=== PATIENT | female | born 1985 | race Caucasian/White ===

== ENCOUNTER 2016-06-17 10:35 | Outpatient (CLI) | payer BC ==
[~2016-06-17] VITALS: Ht 167.6 cm; Wt 78.3 kg
[~2016-06-17 10:35] MED LIST: PREN-29 PO
[2016-06-17 10:40] VITALS: Ht 167.6 cm; Wt 78.3 kg
[2016-06-17 10:43] VITALS: RESP 16
[2016-06-17 12:07] LABS: ALBUMIN 3.6 g/dl (3.3-4.9)
[2016-06-17 12:08] LABS: POTASSIUM 3.3 mmol/L (3.5-5.1)
[2016-06-17 12:10] LABS: BILIRUBIN,INDIRECT 0.6 mg/dl (0-1.1); BILIRUBIN,TOTAL 0.6 mg/dl (0.2-1.3); CREATININE 0.49 mg/dl (0.44-1.00)
[2016-06-17 12:11] LABS: ALBUMIN/GLOBULIN RATIO 1.16; CALCIUM 8.5 mg/dl (8.4-10.2); TOTAL PROTEIN 6.7 g/dl (6.1-8.1)
--- NOTE | 2016-06-17 13:28 | RADRPT ---
PROCEDURE: Limited obstetric ultrasound CLINICAL INDICATION: Nausea, vomiting, labor TECHNIQUE: Multiple transverse and longitudinal grayscale images of the pelvis were obtained bray sabdominally and endovaginally.. COMPARISON: same day FINDINGS: There is a single live intrauterine gestation in a vertex position with a heart rate of 157 bp m. The placenta is right lateral in location. There is no evidence of placental abruption or placen ta previa. The cervix is closed and measures 5.1 cm in length. RPTAT: AA IMPRESSION: The cervix is closed and measures 5.1 cm in length. Physician Kristin Date Time Electronically viewed and signed by Raulito Ghotra Physician on 06/17/2016 13:28 RA/
--- NOTE | 2016-06-17 14:20 | TRIAGE ---
OB Triage Datetime Report Generated by CPN: 06/17/2016 14:20 Datetime: 06/17/2016 14:16 Comments: patient off monitor- order recieved from Dr. Keturah to D/C home Datetime: 06/17/2016 12:18 Stage of : OB Triage Labor Evaluation Frequency: 0 Monitor Mode: External Resting Tone Crest: Relaxed Heart Rate FHR Baseline Rate: 160 Variability: Moderate 6-25 bpm Accelerations: 15X15 Decelerations: None Category: Category I Pain Presence: None/Denies Pain Type: N/A Datetime: 06/17/2016 11:55 Labor Evaluation Frequency: 0 Monitor Mode: External Pattern: Normal: <= 5 Contractions in 10 Minutes Heart Rate FHR Baseline Rate: 155 Monitor Mode: External US Variability: Moderate 6-25 bpm Accelerations: 15X15 Decelerations: None Category: Category I Pain Presence: None/Denies Pain Type: N/A Datetime: 06/17/2016 10:48 Time of Arrival: 06/17/2016 10:33 EGA: 33.2 Arrived By: Ambulatory Arrived From: Home Chief Complaint: stomach flu- nausea vomitting Movement: Present Contractions: Denies/Absent Rupture of Membranes: Denies Vaginal Bleeding: None Vaginal Discharge: Denies Recent Sexual Intercouse: Denies Abdominal Trauma: Not Applicable Patient Complaints: Nausea; Vomiting Additional Patient Complaints: 4 times diarrhea - last time 0900- vomitted 0900 Time Provider Notified: 06/17/2016 10:57 Provider Notified: Dr. Ventura Initial Plan: EFMx@ Datetime: 06/17/2016 10:46 Stage of : OB Triage Assessment Type: Triage Maternal Assessment Level of Consciousness: Fully Conscious DTR's/Clonus: DTRs 2+; No Clonus Headache: Denies Blurred Vision: No Respiratory Effort: Unlabored; Regular Rhythm; Equal Expansion Breath Sounds, Left: Clear and Equal Breath Sounds, Right: Clear and Equal Nausea/Vomiting: Hx of Nausea/Vomiting RUQ Epigastric Pain: Denies Lower Extremities Edema: None Degree: None Upper Extremities Edema: None Degree: None Facial Edema: None Temperature Route: Oral Fall Risk Assessment History of Falling: (0) No Secondary Diagnosis: (0) No Ambulatory Aid: (0) Bedrest/Nurse Assist IV Therapy: (0) No Gait: (0) Normal/Bedrest/Immobile Mental Status: (0) Oriented to Own Ability Fall Score: 0 Fall Risk Score Definition: No Risk: No action required Monitor Mode: External Heart Rate FHR Baseline Rate: 165 Monitor Mode: External US Variability: Moderate 6-25 bpm Accelerations: 15X15 Decelerations: None Category: Category I Pain Assessment Pain Scale: 0 Pain Presence: None/Denies Pain Type: N/A
--- NOTE | 2016-06-17 14:46 | PN ---
Date/Time of Note Date/Time of Note DATE: 06/17/16 TIME: 14:34 OB Subjective Subjective Subjective 31 Y.O EDC 08/03/16 AT 33W2D AT TRIAGE WITH C/O NAUSEA AND VOMITING X4 AND DIARRHEA NO C/O UTERINE CONTRACTION ABLE TO TOLERATE WATER ORALLY LAST DIARRHEA WAS THIS AM 900 OB Objective Objective Objective VSS AFEBRILE HR 114 ELECTROLYTES OK EXCEPT K 3.4 EFM NO U.C STRIP REACTIVE OB Assessment/Plan Other Assessment: IUP 33W2D LVIRAL GASTROENTERITIS Other plan: D/S HOME WITH ROUTINE LABOR INSTRUCTIONS ADVISE TO STAY ON CLEAR LIQUID DIET F/U AT HER OB FOR CARE KYREE CURIEL MD Jun 17, 2016 14:45
== END 2016-06-17 14:31 | disposition home or self-care (01) ==
LOC: OBT 10:35 → L-D 10:36 → OBT 14:31
PROVIDERS: ATTEND Obstetrics & Gynecology
DX: O99.613 Diseases of the digestive system complicating pregnancy, third trimester (principal); A08.4 Viral intestinal infection, unspecified; O60.03 Preterm labor without delivery, third trimester; Z3A.33 33 weeks gestation of pregnancy
CPT/HCPCS: 76817; 80053; G0463

== ENCOUNTER 2016-08-03 12:47 | Inpatient (IN) | payer BC ==
[~2016-08-03] VITALS: Ht 167.6 cm; Wt 82.0 kg
[2016-08-09 13:24] VITALS: Ht 167.6 cm; Wt 82.0 kg
[2016-08-09] MEDS ORDERED: LACTATED RINGER'S 1,000 ML IV SCH (13:33)
[2016-08-09] MEDS ORDERED: MISOPROSTOL 200 MCG TAB PR PRN (14:00)
[2016-08-09] MEDS ORDERED: OXYTOCIN 30 UNITS/LR 500 ML IV PRN (14:00)
[2016-08-09] MEDS ORDERED: BUTORPHANOL 2 MG INJ IV PRN (14:00)
[2016-08-09] MEDS ORDERED: LIDOCAINE 1% (MPF) 30 ML INJ INJ PRN (14:00)
[2016-08-09] MEDS ORDERED: OXYTOCIN 30 UNITS/LR 500 ML IV SCH ×3 (14:00)
[2016-08-09] MEDS ORDERED: METHYLERGONOVINE 0.2 MG INJ IM PRN (14:00)
[2016-08-09] MEDS ORDERED: CARBOPROST 250 MCG INJ IM PRN (14:00)
[2016-08-09 14:33] LABS: ADD SCAN DIFF NO
[2016-08-09 14:36] LABS: BASOPHILS % 0.4 % (0.0-2.0); EOSINOPHILS # 0.1 10^3/ul (0.0-0.5); EOSINOPHILS % 0.9 % (0.0-7.0); HEMATOCRIT 36.1 % (37.0-47.0); HEMOGLOBIN 12.2 g/dl (12.0-16.0); LYMPHOCYTES # 2.5 10^3/ul (0.8-2.9); LYMPHOCYTES % 24.5 % (15.0-51.0); MEAN CORPUSCULAR HEMOGLOBIN 32.2 pg (29.0-33.0); MEAN CORPUSCULAR HGB CONC 33.8 g/dl (32.0-37.0); MEAN CORPUSCULAR VOLUME 95.3 fl (82.0-101.0); MEAN PLATELET VOLUME 9.9 fl (7.4-10.4); MONOCYTE # 0.7 10^3/ul (0.3-0.9); MONOCYTES % 6.8 % (0.0-11.0); NEUTROPHIL # 6.8 10^3/ul (1.6-7.5); NEUTROPHILS % 65.9 % (39.0-77.0); PLATELET COUNT 250 10^3/UL (140-415); RED BLOOD COUNT 3.79 10^6/ul (4.20-5.40); RED CELL DISTRIBUTION WIDTH 12.7 % (11.5-14.5); WHITE BLOOD COUNT 10.3 10^3/ul (4.8-10.8)
[2016-08-09 14:46] LABS: INR 0.96; PARTIAL THROMBOPLASTIN TIME 32.3 Sec (25.0-35.0); PROTIME 12.8 Sec (12.2-14.2)
[2016-08-09] MEDS: DEXTROSE 5%-LR 1,000 ML IV SCH (17:30)
[2016-08-09] MEDS: LACTATED RINGER'S 1,000 ML IV PRN ×2 (19:06→22:44)
[2016-08-09] MEDS ORDERED: FENTAnyl 2MCG/ML-ROPIV 0.2% 100 ML ONE (19:37)
[2016-08-09] MEDS ORDERED: NALOXONE (0.4 MG/ML) INJ IV PRN (20:30)
[2016-08-09] MEDS ORDERED: FENTAnyl 2MCG/ML-ROPIV 0.2% 100 ML BAG EPI SCH (20:30)
[2016-08-10] MEDS: DEXTROSE 5%-LR 1,000 ML IV SCH (01:30)
[2016-08-10] MEDS: LACTATED RINGER'S 1,000 ML IV* SCH ×3 (01:46→17:46)
[2016-08-10] MEDS ORDERED: OXYTOCIN 30 UNITS/LR 500 ML IV SCH (01:46)
--- NOTE | 2016-08-10 01:53 | LDN ---
Date/Time of Note Date/Time of Note DATE: 08/10/16 TIME: 01:50 Delivery Summary of a viable baby girl weighing 3535 grams or 7#13oz, 20' long, and with Apgars of 8/8/9. Placenta Delivered: Spontaneously Meconium: Thick Perineum intact?: No Perineal laceration: 1 Perineal laceration repair: First degree perineal laceration repaired with 2-0 chromic. Anesthesia type: Epidural Estimated blood loss: 250 Sponge & Needle done & correct: Yes All needle counts correct: Yes Any foreign bodies felt in the: No (vagina) Problems: Delivery Information Sex Sex: female Apgars 1 Minute: 8 5 Minute: 8 10 Minute: 9 Suctioning Nose & mouth suctioned at [place]: Yes Delee suction performed: Yes Umbilical Cord Umbilical cord with: 3 Vessels Cord presentations: no nuchal cord Cord Blood was obtained: Yes Mother & Baby Disposition Disposition Mom & Baby to Maternity; Good: Yes Baby to NICU: No DON PRESSLEY MD Aug 10, 2016 01:53
[2016-08-10] MEDS ORDERED: OXYTOCIN 30 UNITS/LR 500 ML IV PRN (02:00)
[2016-08-10] MEDS ORDERED: CARBOPROST 250 MCG INJ IM PRN (02:00)
[2016-08-10] MEDS ORDERED: OXYCODONE/ASPIRIN (4.88/325) TAB PO PRN (02:00)
[2016-08-10] MEDS ORDERED: METHYLERGONOVINE 0.2 MG INJ IM PRN (02:00)
[2016-08-10] MEDS ORDERED: LANOLIN 7 GM TUBE TOP PRN (02:00)
[2016-08-10] MEDS ORDERED: MISOPROSTOL 200 MCG TAB PR PRN (02:00)
--- NOTE | 2016-08-10 02:00 | HP ---
Date/Time of Note Date/Time of Note DATE: 08/10/16 TIME: 01:54 OB - History Hx of Present Free Text/Dictation 31 y.o. with an IUP at 41 weeks sent from the office on 08/09 as the TOI was 1.8cm in this postdates . Chief Complaint: Postdates, oligohydramnios. Last Menstrual Period: October 28, 2015 Estimated Due Date: Aug 03, 2016 : 2 Para: 1 Spontaneous : 0 Therapeutic : 0 Care: Good Care Ultrasounds: Normal mid trimester US Obstetrical Complications: None Medical Complications: None Past Family/Social History * Past Medical, Surgical, Family and Obstetric Histories reviewed from chart. Blood Type: O+ Rubella: immune RPR/VDRL: Negative GBS Status: Negative HBsAG: Negative OB Admission Exam Vital Signs Vital Signs Bp 134/80. T= 98.0 Physical Exam HEENT: WNL Heart: Rhythm Normal Lungs: Clear Abdomen: WNL Extremities: Normal Reflexes: Normal Cervical Dilatation: 1cm Effacement: 25% Station: -3 Membranes: Intact Amniotic Fluid: Thick Meconium Heart Rate: 150's Accelerations: Accelerations Present Decelerations: No Decelerations Contractions on Admission: < 5 Minutes Apart Last 72 hours Lab Results CBC & BMP 08/09/16 14:25 OB Assessment/Plan Reason for admission: induction of labor Other Assessment: Postdates, oligohydramnios. Plan: Induction Induction Method: per Pitocin Protocol DON PRESSLEY MD Aug 10, 2016 02:00
[2016-08-10 03:35] VITALS: BP 136/85; RESP 18
[2016-08-10 04:00] VITALS: BP 127/72; RESP 18
[2016-08-10] MEDS ORDERED: WITCH HAZEL/GLYCERIN PAD PR PRN (04:00)
[2016-08-10] MEDS ORDERED: DIBUCAINE 1% 30 GM OINT PR PRN (04:00)
[2016-08-10] MEDS ORDERED: BENZOCAINE 20% 56 ML SPRAY TOP PRN (04:00)
[2016-08-10] MEDS: IBUPROFEN 600 MG TAB PO SCH ×4 (05:15→23:54)
[2016-08-10 08:11] VITALS: BP 125/84; PULSE 81; RESP 18
[2016-08-10 16:55] VITALS: BP 137/84; PULSE 83; RESP 18
[2016-08-10 19:30] VITALS: BP 133/75; PULSE 75; RESP 20
[2016-08-11] MEDS: LACTATED RINGER'S 1,000 ML IV* SCH (01:46)
[2016-08-11 05:30] VITALS: BP 110/75; PULSE 72; RESP 20
[2016-08-11] MEDS: IBUPROFEN 600 MG TAB PO SCH ×3 (05:37→17:39)
[2016-08-11 07:55] LABS: ADD SCAN DIFF NO
[2016-08-11 07:58] LABS: BASOPHIL # 0.1 10^3/ul (0.0-0.1); BASOPHILS % 0.6 % (0.0-2.0); EOSINOPHILS # 0.2 10^3/ul (0.0-0.5); EOSINOPHILS % 1.4 % (0.0-7.0); HEMATOCRIT 35.9 % (37.0-47.0); HEMOGLOBIN 11.8 g/dl (12.0-16.0); LYMPHOCYTES # 3.1 10^3/ul (0.8-2.9); MEAN CORPUSCULAR HGB CONC 32.9 g/dl (32.0-37.0); MEAN CORPUSCULAR VOLUME 97.3 fl (82.0-101.0); MEAN PLATELET VOLUME 9.8 fl (7.4-10.4); MONOCYTE # 0.9 10^3/ul (0.3-0.9); MONOCYTES % 7.9 % (0.0-11.0); NEUTROPHILS % 61.4 % (39.0-77.0); PLATELET COUNT 270 10^3/UL (140-415); RED BLOOD COUNT 3.69 10^6/ul (4.20-5.40); RED CELL DISTRIBUTION WIDTH 12.8 % (11.5-14.5); WHITE BLOOD COUNT 11.4 10^3/ul (4.8-10.8)
[2016-08-11 08:10] VITALS: BP 138/81; PULSE 79; RESP 18
[2016-08-11 17:25] VITALS: BP 122/70; PULSE 75; RESP 18
[2016-08-11 20:00] VITALS: BP 129/61; PULSE 78; RESP 20
--- NOTE | 2016-08-11 21:06 | PD.PPDC ---
DINING ROOM ATTENDANT [place] Discharge Instruction Condition Patient Condition: Good Diet Diet: Resume Regular Diet Activity/Restrictions Activity: Normal Activity May Shower Restrictions: No Sexual Activity Nothing in the Vagina No [place] No Tampons, douche Follow-up Follow-up with Physician: 6, Week/Weeks Return to clinic for PET ADOPTION COUNSELOR Instructions: Fever greater than 101 Chills Worsening abdominal pain Excessive Vaginal Bleeding OB Instructions: Breast Tenderness Depression DON PRESSLEY MD Aug 11, 2016 21:06
--- NOTE | 2016-08-11 21:09 | DS ---
Date/Time of Note Date/Time of Note DATE: 08/11/16 TIME: 21:07 Obstetrical Discharge Record Final Diagnosis Final Diagnosis: Term delivered Vaginal Delivery Obstetrical Delivery: Spontaneous, Laceration, Repaired Complications Other (Postdates, oligohydramnios.) Augmentation: Yes Induction: Yes Condition on Discharge Physical Assessment Last Vitals: T=98.3 BP 129/61 Voiding: Yes Bowel Movement: Yes Breast: Filling Fundus: Firm Calf Tenderness: No Patient Condition: Good DON PRESSLEY MD Aug 11, 2016 21:09
[2016-08-12] MEDS: IBUPROFEN 600 MG TAB PO SCH ×3 (00:30→13:43)
[2016-08-12 04:20] VITALS: BP 136/80; PULSE 78; RESP 20
[2016-08-12 08:40] VITALS: BP 132/84; PULSE 76; RESP 18
[2016-08-12] MEDS ORDERED: DIPHTH/TET/ACEL PERTUSS (ADULT) 0.5 ML VIAL IM* ONE (09:00)
[2016-08-12 15:19] VITALS: BP 139/84; PULSE 77; RESP 18
== END 2016-08-12 17:00 | disposition home or self-care (01) | DRG 775 ==
LOC: EEVIPCON → EDSTATUS 12:47 → L-D 08-09 13:10 → PP1 08-10 03:40
PROVIDERS: ADMIT Obstetrics & Gynecology; ATTEND Obstetrics & Gynecology
PROC: 10E0XZZ Delivery of Products of Conception, External Approach (ICD-10-PCS; principal; 2016-08-10)
PROC: 0HQ9XZZ Repair Perineum Skin, External Approach (ICD-10-PCS; 2016-08-10)
DX: O48.0 Post-term pregnancy (principal); O41.03X0 Oligohydramnios, third trimester, not applicable or unspecified; O70.0 First degree perineal laceration during delivery; Z3A.41 41 weeks gestation of pregnancy; Z37.0 Single live birth
CPT/HCPCS: 85025; 85610; 85730; 86592; 86900; 86901; 90715; 99464; J2590; J3010; J7120; J7121

== ENCOUNTER → 2017-09-06 | Outpatient (CLI) | END | disposition home or self-care (01) ==

== ENCOUNTER → 2019-01-04 | Outpatient (CLI) | payer BC | END | disposition home or self-care (01) | LOC: LAB 13:02 | PROVIDERS: ATTEND Obstetrics & Gynecology | DX: N39.0 Urinary tract infection, site not specified (principal) | CPT/HCPCS: 87086 ==